=== PATIENT | male | born 1975 | race Caucasian/White ===

== ENCOUNTER 2020-08-20 15:57 | Emergency (ER) | payer OTHER, SELFPAY ==
--- NOTE | 2020-08-20 16:02 | ED.SKABFB ---
HPI - Skin/Abscess/Foreign Bdy General Chief complaint: Skin/Abscess/Foreign Body Stated complaint: left knee bite Time Seen by Provider: 08/20/20 16:02 Source: patient and RN notes reviewed History of Present Illness HPI narrative: Patient is a 44-year-old male who presents the urgent care with complaints of a possible bug bite to the left knee. Patient states he noticed an area on Thursday that started out very small and it has since then grown in size, pain and has had drainage. Patient states that he has put pressure on the area without any improvement. Patient denies of any fever, chills, nausea, vomiting. No other acute complaints. No acute distress noted. Patient aware of the plan of care. Some parts of this dictation were generated by voice recognition software and may contain typographical and/or grammatical inaccuracies. Related Data Home Medications Medication Instructions Recorded Confirmed alprazolam 0.5 mg PO USEASDIRECTD 08/20/20 08/20/20 gabapentin 300 mg PO HS 08/20/20 08/20/20 hydrocodone-acetaminophen 10 tablet PO DIRECTED 08/20/20 08/20/20 Allergies Allergy/AdvReac Type Severity Reaction Status Date / Time amoxicillin Allergy Mild Verified 06/30/16 18:46 Review of Systems Review of Systems: Narrative: CONSTITUTIONAL: Denies fever, chills, or sweats. EYES: Denies visual changes, redness, or discharge. ENT: Denies rhinorrhea, congestion, sore throat, or otalgia. CARDIOVASCULAR: Denies chest pain, palpitations, or edema. RESPIRATORY: Denies cough or dyspnea. GASTROINTESTINAL: Denies abdominal pain, nausea, vomiting, or diarrhea. GENITOURINARY: Denies dysuria or hematuria. SKIN: Reports of possible bug bite to the left knee MUSCULOSKELETAL: Denies back pain, joint pain, or myalgia. NEUROLOGIC: Denies headache, numbness, or weakness. All other systems reviewed are negative, except as documented in HPI. PMFSH Social History Social History Gender identity (if verbalized by the patient): Male Comments At the time of my signature, I reviewed and agree with the nursing past medical, surgical, social, and family history. There is no relevant family history pertinent to the patient complaint. Exam Narrative: Exam Narrative: GENERAL: This is a well-nourished, well-developed patient, in no apparent distress. HEAD: normocephalic, atraumatic. EYES: PERRL. Sclera clear/white. Vision is grossly intact. EARS: External ears normal NOSE: External nose normal with no obvious nasal discharge, nares without redness, no rhinorrhea. THROAT: Mucous membranes moist NECK: Neck supple CARDIOVASCULAR: Regular rate and rhythm without murmurs, gallops, or rubs. RESPIRATORY: Clear to auscultation. Breath sounds equal bilaterally. No wheezes, rales, or rhonchi. SKIN: 3 x 3 cm area of erythema with raised center to the lateral left knee NEURO: awake, alert, and oriented to person, place and time. There were no obvious focal neurologic abnormalities. EXTREMITIES: No clubbing, cyanosis, or edema. Course Vital Signs Vital signs: Vital Signs Temperature 98.7 F 08/20/20 16:05 Pulse Rate 80 08/20/20 16:05 Respiratory Rate 16 08/20/20 16:05 Blood Pressure 129/63 08/20/20 16:05 Pulse Oximetry 98 08/20/20 16:05 Temperature 98.7 F 08/20/20 16:05 Pulse Rate 80 08/20/20 16:05 Respiratory Rate 16 08/20/20 16:05 Blood Pressure 129/63 08/20/20 16:05 Pulse Oximetry 98 08/20/20 16:05 Reviewed MDM - Skin/Abscess/Foreign Bdy MDM Narrative Medical decision making narrative: Advised the patient to complete oral antibiotic regimen as prescribed. Use prescription cream to the affected area as directed. Keep the wound covered when at risk of being soiled, such as when you are working. Be sure to eat and drink with the medication. Clean the area twice a day with plain Dial soap and water. Be aware of signs and symptoms of worsening infection such as increased swelling, redness, nausea, vomiting, fe
[2020-08-20 16:05] VITALS: BP 129/63; PULSE 80; RESP 16; TEMP 37.1; O2SAT 98
== END 2020-08-20 16:13 | disposition home or self-care (01) ==
PROVIDERS: Emergency Provider Nurse Practitioner Family; PCP Family Medicine
DX: S80.262A Insect bite (nonvenomous), left knee, initial encounter (principal); W57.XXXA Bitten or stung by nonvenomous insect and other nonvenomous arthropods, initial encounter; F41.9 Anxiety disorder, unspecified
CPT/HCPCS: 99213; G0463